=== PATIENT | female | born 1965 | race Caucasian/White ===

== ENCOUNTER 2017-08-23 11:23 | Inpatient (IN) ==
[2017-08-23] MEDS ORDERED: Ondansetron 4 MG/2 ML VIAL ONE (11:51)
[2017-08-23] MEDS ORDERED: Lidocaine -MPF 2% 2 ML VIAL ONE (11:51)
[2017-08-23] MEDS ORDERED: *HR* Succinylcholine 200 MG/10 ML VIAL IVP ONE (11:51)
[2017-08-23] MEDS ORDERED: *HR* Midazolam HCl 2 MG/2 ML VIAL ONE (11:52)
[2017-08-23] MEDS ORDERED: *HR* Propofol 200 MG/20 ML VIAL IVP ONE (11:52)
[2017-08-23] MEDS ORDERED: *HR* FentaNYL (PF) 100 MCG/2 ML VIAL ONE (11:52)
[2017-08-23] MEDS ORDERED: Dexamethasone 4 MG/ML VIAL ONE (11:52)
[2017-08-23] MEDS ORDERED: *HR* Rocuronium Bromide 50 MG/5 ML VIAL ONE (11:54)
--- NOTE | 2017-08-23 11:55 | Anesthesia Evaluation PreOp ---
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[employer] History: Other (Migraines) Other Medical History: Denies Any Significant HX Anesthesia History: No Prior Anesthetic Complications, Past Anesthesia (Vein stripping, D&C, Tubal, Tosillectomy, Knee scope) : No Alcohol Use: none Drug use: none Medications and Allergies Furosemide [Lasix] 40 mg PO DAILY 07/26/16 [History] Gabapentin [Neurontin] 800 mg PO TID 07/26/16 [History] Hydrocodone/Acetaminophen [Sibley 5-325 Tablet] 1 tab PO TID PRN 07/26/16 [ History] Lisinopril [Zestril] 20 mg PO DAILY 07/26/16 [History] Lovastatin [Altoprev] 40 mg PO DAILY 07/26/16 [History] Potassium Chloride [K-Tab ER] 40 meq PO BID 07/26/16 [History] Trazodone HCl 50 mg PO HS 07/26/16 [History] Cyclobenzaprine [Flexeril] 10 mg PO HS PRN 08/23/17 [History] 3 Allergy/AdvReac Type Severity Reaction Status Date / Time sulfamethoxazole AdvReac See Verified 08/23/17 11:43 [From Bactrim] Comments trimethoprim [From Bactrim] AdvReac See Verified 08/23/17 11:43 Comments - Meds/Allergy Pre-op Review Medications Reviewed: Yes Allergies Reviewed: Yes Beta Blockers on Current Med List: No Anesthesia Results - Labs Laboratory Tests 06/28/17 08/16/17 08/16/17 11:13 09:03 09:03 WBC 4.3 Hgb 14.1 Hct 43.3 Plt Count 349 Sodium 141 Potassium 3.9 Chloride 105 Carbon Dioxide 28 BUN 14 Creatinine 0.77 - Imaging EKG: report reviewed (SR) Anesthesia Exam O2 Sat Height 1.63 m Height 1.63 m Weight 103.419 kg Weight 103.419 kg O2 Sat by Pulse Oximetry 98 Vital Signs Temp Pulse Resp BP Pulse Ox 97.7 F 99 18 135/77 98 08/23/17 11:44 08/23/17 11:44 08/23/17 11:44 08/23/17 11:44 08/23/17 11:44 NPO (# of Hours): > 8 hrs Pain Scale: 0 Pain Scale Used: Numeric (1 - 10) - HEENT Pupil (Motor): Pupils equal, EOMI Mallampati: II Teeth: Missing Denture Type: Upper: Complete, Lower: Partial Oral Opening: Greater than 3 - [employer]GER [employer] LOC: Oriented [employer] Motor: Normal RUE, Normal LUE, Normal RLE, Normal LLE, Normal Face [employer] Sensory: Normal: RUE, LUE, RLE, LLE, Face - Cardiac Rhythm: Regular Murmur: None JVD: No Carotid Bruit: No - Pulmonary Breath Sounds: bilateral Clear Respiratory Effort: Symmetrical Anesthesia Assess/Plan ASA Score: 2 Modified English Scale for Level of Consciousness: Cooperative, oriented, and tranquil Anesthetic Plan: General Autologous Blood: Yes Monitoring Plan: Standard Monitors Recovery Plan: PACU
[2017-08-23] MEDS ORDERED: CeFAZolin Syr 2,000MG/20 ML 2,000 MG/20 ML SYRINGE IVPB ONE (11:57)
[2017-08-23] MEDS ORDERED: Lidocaine -MPF 1% 2 ML VIAL ID ONE (11:57)
[2017-08-23] MEDS ORDERED: Ringers Solution, Lactated 1,000 ML IVC SCH (12:00)
--- NOTE | 2017-08-23 12:04 | History & Physical Report ---
Date of Encounter: 08/23/17 Time of Encounter: 12:03 24 Hour HP Update - Instructions Instructions: If the History and Physical is less than 30 days old and was completed prior to A.M. admission and or procedure and has NOT been updated on calendar day of procedure please complete this update prior to performing procedure. - Update Patient reports changes in Medical Condition: No Changes in examination, assessment, or condition: No Changes in Medication: No Preop tests/diagnostics Reviewed: Yes Surgery Remains Indicated: Yes Consent for Planned Operative Procedure(s) Verified: Yes - Pre-Operative Checklist Preoperative Checklist Indicated: Yes Prophylactic Antibiotic Ordered: Yes Home Medications Include Beta Marianna: No Beta Marianna Taken Today (Day of Surgery): No Beta Marianna Taken Yesterday (Day Prior to Surgery): No Is VTE Prophylaxis Indicated?: Yes
--- NOTE | 2017-08-23 12:17 | Urology History & Physical ---
Date of Encounter: 08/23/17 Time of Encounter: 12:15 Assessment and Plan (1) Uterine prolapse Current Visit: Yes Status: Acute proceed with hyst and ASCP. pt agrees with plan and has no questions. (2) VENTURA (stress urinary incontinence, female) Current Visit: Yes Status: Acute proceed with supris sling. History of Present Illness Chief complaint: prolapse and VENTURA HPI: Ms. Parish is a 52 year old female here for ASCP and supris sling. no changes Past Med Surg Social Fam HX - Past Medical History Medical history: arthritis, hyperlipidemia, hypertension, other Psychiatric history: no psych history - Past Surgical History Surgical History: non-contributory - Social History Smoking Status: Former smoker Smokeless Tobacco Status: No Alcohol use: none Drug use: none Medications and Allergies Furosemide [Lasix] 40 mg PO DAILY 07/26/16 [History] Gabapentin [Neurontin] 800 mg PO TID 07/26/16 [History] Hydrocodone/Acetaminophen [Leslie 5-325 Tablet] 1 tab PO TID PRN 07/26/16 [ History] Lisinopril [Zestril] 20 mg PO DAILY 07/26/16 [History] Lovastatin [Altoprev] 40 mg PO DAILY 07/26/16 [History] Potassium Chloride [K-Tab ER] 40 meq PO BID 07/26/16 [History] Trazodone HCl 50 mg PO HS 07/26/16 [History] Cyclobenzaprine [Flexeril] 10 mg PO HS PRN 08/23/17 [History] 3 Allergy/AdvReac Type Severity Reaction Status Date / Time sulfamethoxazole AdvReac See Verified 08/23/17 11:43 [From Bactrim] Comments trimethoprim [From Bactrim] AdvReac See Verified 08/23/17 11:43 Comments Review of Systems - Constitutional no fever(s) Exam Initial Vital Signs Temp Pulse Resp BP Pulse Ox 97.7 F 99 18 135/77 98 08/23/17 11:44 08/23/17 11:44 08/23/17 11:44 08/23/17 11:44 08/23/17 11:44 - General physical appearance Present: well developed, no distress Urology Results - Labs All other labs normal.
[2017-08-23] MEDS ORDERED: Lidocaine/EPI 1:100k 1% 20 ML VIAL ONE (12:24)
[2017-08-23] MEDS ORDERED: Acetaminophen IV 1,000 MG/100 ML INFUS..BTL ONE (12:37)
[2017-08-23] MEDS ORDERED: *HR* HYDROmorphone 2 MG/ML SYRINGE ONE ×2 (13:40→17:07)
--- NOTE | 2017-08-23 15:04 | OB/GYN Procedure Note ---
OB-HEEL SPLITTER: Procedure - Diagnosis Date of procedure: 08/23/17 Pre-op diagnosis: pelvic organ prolapse Post-op diagnosis: same - Procedure Procedure: supracervical hysterectomy Surgeon: Tomer Rosas Was there an casting assistant present: Yes Carbide Die Maker: Cb Vazquez Anesthesia Type: General Estimated blood loss (cc): 300 Fluids: crystalloid Procedure Complications: none Specimens collected: uterus and bilateral tubes Disposition: floor Findings: boggy uterus, ovaries and tubes Narrative: The patient was placed in the dorsal supine position after an adequate level of general anesthesia was obtained and after appropriate informed consent had been obtained. The Johnston was draining clear urine from the bladder. After the patient was prepped and draped in the usual sterile manner, a Pfannenstiel incision was made. The subcutaneous tissue was incised until the level of the rectus fascia was reached. A alexa was made in the fascia. This was extended the length of the incision using Lim scissors. The recti muscles were to get adequate entry into the abdomen. We explored the abdomen. The findings documented above were noted. The Book Fernando retractor was set up before the hysterectomy was started. The right round ligament was clamped with the Ligasure device, clamped, coagulated and cut. The anterior leaf of the broad ligament was cut using Metzenbaum scissors. The bladder was gently dissected using sharp and blunt dissection. The right tube and the utero-ovarian ligament bundle was clamped, coagulated and cut with the Ligasure. The ovaries were freed and the tubes amputated. The right uterine artery was then skeletonized, clamped at the level of the cervical os using the Ligasure device and cut. Similar procedure was done on the opposite side. The uterus was amputated by placing 2 curved heaneys tip to tip together right above the cervix, using curved scissors to amputate the uterus. O-Vicryl suture was then used to approximate the cuff. Bleeding points were suture ligated until adequate hemostasis was achieved. At this point, Dr Vazquez took over to begin his case. Pls see his notes for specific details.
[2017-08-23] MEDS ORDERED: Lidocaine -MPF 4% 5 ML AMPUL ONE (16:12)
[2017-08-23] MEDS ORDERED: Ketorolac 30 MG/ML VIAL ONE (16:59)
--- NOTE | 2017-08-23 17:38 | Operative Note ---
Date of procedure: 08/23/17 Pre-op diagnosis: uterine prolapse and VENTURA Post-op diagnosis: same Procedure: abdominal sacrocolpopexy supris mid urethral sling cystoscopy Anesthesia: GETA Surgeon: Cb Vazquez Was there an special education assistant present: No Estimated blood loss (cc): 400 Specimen: none Condition: stable Disposition: PACU Procedure in Detail: When I entered the room the patient was in a modified low lithotomy position and draped using sterile technique. Pinedo catheter is in place. Bookwalter retractor was in place with bowel packed superiorly. There was some difficulty identifying the location of the uterus. I was able to pack the bowel superiorly to provide better exposure of the pelvis. The uterus was eventually identified and a retroflexed location. I then stayed to assist for the duration of the hysterectomy. Pleated I began the sacral colpopexy. Sharp dissection was used to dissect the bladder away from the anterior vagina along the vesicovaginal septum. No obvious bladder injury occurred during this step. Dissection continued over the cervix and posteriorly to separate the vagina from the rectum along the rectovaginal septum. An EEA was in the vagina to aid in dissection and maneuverability of the vagina. The retroperitoneal space was then exposed by incising the posterior peritoneum from the level of the rectovaginal septum cranially to the sacral promontory. I identified the right ureter which did course more medially than expected. I was able to dissect this laterally to avoid injury or involvement with the case. The initial concern regarding changing the normal vaginal axis through fixation to the promontory has not been shown to be a problem. A [employer] polypropylene graft was obtained and trimmed to size. six 2-0 Prolene sutures were pre-placed. 2 were located on the anterior aspect of the vagina and cervix. 4 additional sutures were placed posterior on the cervix and as posterior as the dissection would allow. The 2 anterior sutures were secured to one arm of the polypropylene graft. The 4 posterior sutures were secured to the other arm. Excess mesh material was excised and it appeared the graft was well secured to the anterior and posterior aspect of the vagina. Two additional Prolene sutures were preplaced at the sacral promontory. These sutures were threaded through the graft to secure the third arm to the sacral promontory. The graft was positioned along the retroperitoneal space cranial to the sacral promontory. It was sized to allow for a tension-free approximation The peritoneal reflection is closed over the graft using a 2-0 Vicryl isolating the graft in a retroperitoneal location. A cystoscopy was performed. I carefully examined the entire bladder and noted no injury from the procedure. I first cannulated the left ureteral orifice with a 5 Togolese ureteral catheter. The passed without resistance up to what I felt was the level of the kidney. The same was repeated on the right side but I felt some resistance. At that point I proceeded back to my abdominal incision. I identified the retroperitoneal closure. I opened the Vicryl and noted that the right ureter was directly behind the posterior peritoneum and was "bunched" in my closure. Once I released the suture the ureter was released from this area. I carefully examined the ureter and noted no injury, hematoma, perforation , I reclosed the retroperitoneum after dissecting the ureter more laterally. I then proceeded to pass the 5 Togolese ureteral catheter and it passed without resistance indicating the obstruction was resolved. I did not feel she required a ureteral stent as there was no significant injury. I then I then proceeded with the super Mays urethral sling. A weighted vaginalspeculum was placed and secured with an Allis clamp. Snowman retractor was placed and used to retract the labia and provide better visualization. At that point, approximately 6 cc of 1% lidocaine with epinephrine was injected into the anterior vaginal mucosa overlying the mid urethra to hydrodissect the area. 15 blade scalpel was then used to make an approximately 2-cm veritcal incision. Underlying tissue was carefully dissected with Metzenbaum scissors and blunt dissection to create a space lateral to the urethra and beneath the pubic rami on each side. The pinedo catheter was in place allowing me to palpate the urethra and prevent urethral injury during this portion of the procedure. I had adequate dissection on both sides and then proceeded to make two small stab incisions two fingerbreadths lateral to the pubic symphysis. The Supris trocars were placed from an [id number]-si fashion down onto my finger within the vaginal incision and previously dissected area. Incisions for the trochars were made approximately 2 cm below the Pfannenstiel incision. While passing the trocars I was careful to stay close to the pubic symphysis and used my finger to push the urethra off to the contralateral side. With both trocars in place, I removed the Pinedo catheter and inserted the 21-Togolese rigid cystoscope. The bladder was inspected with a 30 and 70-degree lens. I again placed 5 Togolese ureteral catheters into both ureters and passed without resistance. I elected to perform the step again because of the earlier difficulty with the right ureter. No evidence of trocar injury and the bladder mucosa was intact. The urethra also appeared uninjured and the pinedo catheter was replaced. At that point, I obtained the Supris sling and threaded the sling through the eyelets of the trocars. The trocars were then pulled from an [id number] fashion. The sling was positioned under the mid urethra. The sling was not twisted and had minimal tension . I was satisfied with the sling position and closed the vaginal incision with a running 2-0 Vicryl suture. Vaginal packing was placed with 2-inch Mateus moistened with normal saline. Pinedo catheter was left in place. The excess sling material was excised and the suprapubic incisions were closed with steri strips. There were no specimens during the procedure. All counts were correct and patient was brought out of anesthesia in stable condition. The Bookwalter and all packing were removed. Counts were confirmed to be correct 3. The rectus muscle was closed using a running 0 Vicryl suture. The fascia was closed with a #1 looped PDS. Alea's with a 2-0 Vicryl and the skin with 4-0 Monocryl and Steri-Strips.
[2017-08-23] MEDS ORDERED: *HR* HYDROmorphone (PF) 1 MG/ML SYRINGE ONE (18:00)
[2017-08-23] MEDS: *HR* HYDROmorphone (PF) 1 MG/ML SYRINGE IVP PRN ×2 (18:01→18:14)
[2017-08-23] MEDS ORDERED: Naloxone 0.4 MG/ML INJ IVP PRN (18:58)
[2017-08-23] MEDS ORDERED: *HR* Morphine 2 MG/ML SYRINGE IVP PRN (18:58)
[2017-08-23] MEDS ORDERED: Ondansetron 4 MG/2 ML VIAL IVP PRN (18:58)
[2017-08-23] MEDS ORDERED: Ketorolac 15 MG/ML VIAL IVP PRN (18:58)
[2017-08-23] MEDS ORDERED: *HR* Promethazine 25 MG/ML VIAL IVP PRN (18:58)
[2017-08-23] MEDS ORDERED: *HR* Belladonna Alkaloids/Opium 30 MG RECTAL SUPPOSITORY RC PRN (18:58)
[2017-08-23] MEDS: Gabapentin 400 MG CAPSULE PO SCH (21:20)
[2017-08-23] MEDS: *HR* OxyCODONE/APAP 5/325 TABLET PO PRN (23:01)
[2017-08-24] MEDS: 0.9 % Sodium Chloride 1,000 ML IVC SCH ×2 (01:29→08:58)
[2017-08-24] MEDS: Simethicone 80 MG TAB.CHEW PO PRN ×3 (01:47→23:33)
[2017-08-24 06:14] LABS: BUN/Creatinine Ratio 20 (6-26); Blood Urea Nitrogen 17 mg/dL (6-20); Calcium 8.3 mg/dL (8.6-10.3); Carbon Dioxide 27 mEq/L (23-29); Chloride 106 mEq/L (98-107); Glucose 147 mg/dL (70-105); Osmolality,Calculated 286 (280-300); Potassium 4.9 mEq/L (3.5-5.1); Sodium 136 mEq/L (136-145); eGFR For African Americans > 60 (> 60); eGFR For Non-African Americans > 60 (> 60)
--- NOTE | 2017-08-24 07:17 | Urology Progress Note ---
Date of Encounter: 08/24/17 Time of Encounter: 07:15 - Assessment and Plan (1) Uterine prolapse Current Visit: Yes Status: Resolved Assessment and plan: will remove cath today. watch closely for retention which could occur after sling and large surgery out of bed to chair TID will place abd binder renal function OK. H&H pending. (2) VENTURA (stress urinary incontinence, female) Current Visit: Yes Status: Acute Progress Note Subjective: still having pain Narrative: no acute issues overnight. Objective Initial Vital Signs Temp Pulse Resp BP Pulse Ox 97.7 F 99 18 135/77 98 08/23/17 11:44 08/23/17 11:44 08/23/17 11:44 08/23/17 11:44 08/23/17 11:44 - General physical appearance Present: no distress - Additional Exam abd without major bruising. pinedo with clear urine (hematuria from yesterday resolved. ) - Labs 08/24/17 05:43 Diabetes panel 08/24/17 Range/Units 05:43 Sodium 136 (136-145) mEq/L Potassium 4.9 (3.5-5.1) mEq/L Chloride 106 (98-107) mEq/L Carbon Dioxide 27 (23-29) mEq/L BUN 17 (6-20) mg/dL Creatinine 0.87 (0.60-1.20) mg/dL Glucose 147 H (70-105) mg/dL Calcium 8.3 L (8.6-10.3) mg/dL Calcium panel 08/24/17 Range/Units 05:43 Calcium 8.3 L (8.6-10.3) mg/dL Pituitary panel 08/24/17 Range/Units 05:43 Sodium 136 (136-145) mEq/L Potassium 4.9 (3.5-5.1) mEq/L Chloride 106 (98-107) mEq/L Carbon Dioxide 27 (23-29) mEq/L BUN 17 (6-20) mg/dL Creatinine 0.87 (0.60-1.20) mg/dL Glucose 147 H (70-105) mg/dL Calcium 8.3 L (8.6-10.3) mg/dL Adrenal panel 08/24/17 Range/Units 05:43 Sodium 136 (136-145) mEq/L Potassium 4.9 (3.5-5.1) mEq/L Chloride 106 (98-107) mEq/L Carbon Dioxide 27 (23-29) mEq/L BUN 17 (6-20) mg/dL Creatinine 0.87 (0.60-1.20) mg/dL Glucose 147 H (70-105) mg/dL Calcium 8.3 L (8.6-10.3) mg/dL - VTE Documentation of Mechanical Device: Intermittent pneumatic compression device Consult Discharge Plan - Plan Referrals: Crystal Kilpatrick MD [Primary Care Provider] -
[2017-08-24] MEDS: Lisinopril 20 MG TABLET PO SCH (08:57)
[2017-08-24] MEDS: Gabapentin 400 MG CAPSULE PO SCH ×3 (08:58→21:29)
[2017-08-24] MEDS: Furosemide 40 MG TABLET PO SCH (09:12)
[2017-08-24] MEDS: *HR* OxyCODONE/APAP 5/325 TABLET PO PRN ×3 (14:03→23:28)
--- NOTE | 2017-08-24 17:57 | OB/GYN Progress Note ---
Date of Encounter: 08/24/17 Time of Encounter: 17:54 - Assessment and Plan (1) Status post abdominal supracervical subtotal hysterectomy Current Visit: Yes Status: Acute s/p KEVIN, SCP, sling, POD#1, doing well, continue current inpt care, discharge tomorrow Subjective - Subjective Interval history: doing well, tolerating liquids, pain is under control, pinedo removed, waiting to void Objective - Vital Signs Latest vital signs: Vital Signs Temp Pulse Pulse Resp BP Pulse Ox 08/24/17 16:32 98.0 F 96 18 120/73 100 08/24/17 11:44 98.3 F 106 18 104/60 100 08/24/17 08:00 97.6 F 102 18 104/73 97 08/24/17 05:30 98.7 F 99 18 107/62 08/23/17 22:00 98.0 F 99 18 110/67 95 08/23/17 21:00 98.8 F 101 18 128/65 97 08/23/17 20:00 98.1 F 100 16 118/69 100 08/23/17 19:35 99.1 F 104 104 14 119/75 95 08/23/17 18:57 98.1 F 99 12 101/65 98 08/23/17 18:35 97.7 F 92 12 110/71 96 08/23/17 18:25 97.7 F 87 15 113/94 94 08/23/17 18:15 89 12 113/59 96 08/23/17 18:05 97.7 F 86 14 106/64 93 08/23/17 17:55 89 14 116/69 95 Intake and Output 08/24/17 08/24/17 08/24/17 07:59 15:59 23:59 Intake Total 1120 / 1120 Output Total 400 / 400 550 / 550 Balance -400 / -400 570 / 570 Intake: IV Fluids 1000 / 1000 0.9 % Sodium Chloride 1,000 ML 1000 / 1000 @ 100 mls/hr IVC .Q10H KEVIN Rx#: [id number] Oral 120 / 120 Output: Catheter 400 / 400 550 / 550 Urethral (Pinedo) 400 / 400 Other: Meal Lunch Percent of Meal Consumed 60% - I&O's I&O's: Intake & Output 08/21/17 08/22/17 08/23/1718 23:59 23:59 23:59 23:59 Intake Total 1120 / 1120 Output Total 600 / 600 950 / 950 Balance -600 / -600 170 / 170 Weight 103.419 kg - Exam Lungs: bilateral: normal Chest: Normal S1, Normal S2 Extremities: Present: normal Abdomen: Present: soft Incision OB: Present: normal - Labs Labs: Abnormal lab results Glucose 147 mg/dL (70-105) H 08/24/17 05:43 Calcium 8.3 mg/dL (8.6-10.3) L 08/24/17 05:43 Consult Discharge Plan - Plan Referrals: Crystal Kilpatrick MD [Primary Care Provider] -
--- NOTE | 2017-08-25 07:25 | Discharge Summary ---
Date of Encounter: 08/25/17 Time of Encounter: 07:23 - Discharge Diagnosis (1) Uterine prolapse Priority: Primary Status: Resolved (2) VENTURA (stress urinary incontinence, female) Priority: Secondary Status: Resolved - Discharge Medications Prescriptions: OxyCODONE/APAP 5/325 [Percocet 5/325 MG] 1 each PO Q4HR PRN #20 tablet PRN Reason: Pain Docusate [Colace] 100 mg PO BID PRN #30 capsule PRN Reason: Constipation Home Medications: Furosemide [Lasix] 40 mg PO DAILY 07/26/16 [History] Gabapentin [Neurontin] 800 mg PO TID 07/26/16 [History] Lisinopril [Zestril] 20 mg PO DAILY 07/26/16 [History] Lovastatin [Altoprev] 40 mg PO DAILY 07/26/16 [History] Potassium Chloride [K-Tab ER] 40 meq PO BID 07/26/16 [History] Trazodone HCl 50 mg PO HS 07/26/16 [History] Cyclobenzaprine [Flexeril] 10 mg PO HS PRN 08/23/17 [History] Docusate [Colace] 100 mg PO BID PRN #30 capsule 08/25/17 [Rx] OxyCODONE/APAP 5/325 [Percocet 5/325 MG] 1 each PO Q4HR PRN #20 tablet 08/25/17 [Rx] Allergies/Adverse Reactions: 3 Allergy/AdvReac Type Severity Reaction Status Date / Time sulfamethoxazole AdvReac See Verified 08/23/17 11:43 [From Bactrim] Comments trimethoprim [From Bactrim] AdvReac See Verified 08/23/17 11:43 Comments Date of admission: 08/23/17 18:46 Primary care physician: Crystal Kilpatrick Discharging clinician: Cb Vazquez Anticipated date of discharge: 08/25/17 - Patient Status Disposition: Home, Self-Care Condition: Good Functional capacity at discharge: independent ambulation Overall status at discharge: patient is progressing back to baseline - Discharge Instructions Follow Up With: Crystal Kilpatrick MD [Primary Care Provider] - Cb Vazquez MD [Partnered Physician] - (2-4 weeks ) Additional Instructions: OK to shower OK to ambulate OK to walk up stairs avoid baths and swimming avoid heavy lifting, activity and straining. no intercourse. nothing in vagina. ok to use a pad. Use stool softeners if constipated OK to leave incision open to air call if severe abdominal pain, intractable nausea/vomiting, fever >101, inability to urinate. - Diet and Activity Activity: other Diet: advance to your usual diet - Hospital Course Hospital course: Ms. Parish is a 52 year old female POD#2 ASCP, mid urethral sling and hysterectomy. doing good. passing flatus. urinating with cath out. vitals stable. ambulating. no post op concerns. - Time Spent with Patient Total time spent providing and/or coordinating discharge services: Less than 30 minutes Exam Initial Vital Signs Temp Pulse Resp BP Pulse Ox 97.7 F 99 18 135/77 98 08/23/17 11:44 08/23/17 11:44 08/23/17 11:44 08/23/17 11:44 08/23/17 11:44 - General physical appearance Present: well developed, no distress - VTE Documentation of Mechanical Device: Intermittent pneumatic compression device
[2017-08-25] MEDS: Gabapentin 400 MG CAPSULE PO SCH (09:08)
[2017-08-25] MEDS: Furosemide 40 MG TABLET PO SCH (09:09)
[2017-08-25] MEDS: Lisinopril 20 MG TABLET PO SCH (09:09)
[2017-08-25] MEDS: Simethicone 80 MG TAB.CHEW PO PRN (09:14)
[2017-08-25] MEDS: *HR* OxyCODONE/APAP 5/325 TABLET PO PRN (09:14)
[2017-08-25 11:20] VITALS: BP 127/73
== END 2017-08-25 13:30 | disposition home or self-care (01) | DRG 513 ==
LOC: SAMDAY 11:23 → 1NENUOBS 18:46
PROVIDERS: ADMIT Student in an Organized Health Care Education/Training Program; ATTEND Student in an Organized Health Care Education/Training Program